=== PATIENT | female | born 1970 | race Caucasian/White ===

== ENCOUNTER 2021-08-24 08:14 | Outpatient (CLI) | payer MEDICARE | END 2021-08-24 08:15 | disposition home or self-care (01) | LOC: CSHCT 08:14 | PROVIDERS: ATTEND Urology | DX: N28.1 Cyst of kidney, acquired (principal); K76.0 Fatty (change of) liver, not elsewhere classified; Z98.890 Other specified postprocedural states; Z90.49 Acquired absence of other specified parts of digestive tract | CPT/HCPCS: 74178 ==